=== PATIENT | female | born 1990 | race Caucasian/White ===

== ENCOUNTER → 2023-06-04 09:52 | Outpatient (REF) | payer BC, SELFPAY | LOC: HWRAD 09:52 | PROVIDERS: ATTENDING PHYSICIAN Nurse Practitioner Family; FAMILY PHYSICIAN Family Medicine | DX: R10.9 Unspecified abdominal pain (principal) | CPT/HCPCS: 76775; 76856 ==

== ENCOUNTER → 2023-08-19 09:48 | Outpatient (REF) | payer BC, SELFPAY | LOC: PNTC 09:48 | PROVIDERS: ATTENDING PHYSICIAN Obstetrics & Gynecology | DX: Z36.0 Encounter for antenatal screening for chromosomal anomalies (principal); Z36.82 Encounter for antenatal screening for nuchal translucency | CPT/HCPCS: 76801; 76813 ==

== ENCOUNTER 2024-01-11 16:12 | Observation (INO) | payer BC, SELFPAY ==
[2024-01-11 16:43] VITALS: BP 124/67; BMI 41.6
== END 2024-01-11 18:12 | disposition home or self-care (01) ==
LOC: LDRP 16:12
PROVIDERS: ADMITTING PHYSICIAN Obstetrics & Gynecology; FAMILY PHYSICIAN Family Medicine
DX: O47.03 False labor before 37 completed weeks of gestation, third trimester (principal); R10.9 Unspecified abdominal pain; K90.0 Celiac disease; O99.343 Other mental disorders complicating pregnancy, third trimester; F41.9 Anxiety disorder, unspecified; Z3A.34 34 weeks gestation of pregnancy; O09.523 Supervision of elderly multigravida, third trimester; Z80.7 Family history of other malignant neoplasms of lymphoid, hematopoietic and related tissues; Z82.49 Family history of ischemic heart disease and other diseases of the circulatory system; Z86.16 Personal history of COVID-19; Z91.040 Latex allergy status; Z88.2 Allergy status to sulfonamides; Z91.018 Allergy to other foods
CPT/HCPCS: 59899; G0378

== ENCOUNTER → 2024-01-12 11:24 | Outpatient (REF) | payer BC, SELFPAY | LOC: PNTC 11:24 | PROVIDERS: ATTENDING PHYSICIAN Obstetrics & Gynecology | DX: O99.210 Obesity complicating pregnancy, unspecified trimester (principal); O09.529 Supervision of elderly multigravida, unspecified trimester; O34.219 Maternal care for unspecified type scar from previous cesarean delivery | CPT/HCPCS: 59025; 76815 ==

== ENCOUNTER → 2024-01-19 17:03 | Outpatient (REF) | payer BC, SELFPAY | LOC: PNTC 17:03 | PROVIDERS: ATTENDING PHYSICIAN Obstetrics & Gynecology | DX: O99.210 Obesity complicating pregnancy, unspecified trimester (principal); O34.219 Maternal care for unspecified type scar from previous cesarean delivery | CPT/HCPCS: 59025; 76815 ==

== ENCOUNTER → 2024-01-26 15:59 | Outpatient (REF) | payer BC, SELFPAY | LOC: PNTC 15:59 | PROVIDERS: ATTENDING PHYSICIAN Obstetrics & Gynecology | DX: O99.210 Obesity complicating pregnancy, unspecified trimester (principal); O34.219 Maternal care for unspecified type scar from previous cesarean delivery | CPT/HCPCS: 36415; 59025; 76815 ==

== ENCOUNTER → 2024-02-02 09:28 | Outpatient (REF) | payer BC, SELFPAY | LOC: PNTC 09:28 | PROVIDERS: ATTENDING PHYSICIAN Obstetrics & Gynecology | DX: O99.210 Obesity complicating pregnancy, unspecified trimester (principal); O34.219 Maternal care for unspecified type scar from previous cesarean delivery | CPT/HCPCS: 59025; 76815 ==

== ENCOUNTER → 2024-02-09 09:26 | Outpatient (REF) | payer BC, SELFPAY | LOC: PNTC 09:26 | PROVIDERS: ATTENDING PHYSICIAN Obstetrics & Gynecology | DX: O99.210 Obesity complicating pregnancy, unspecified trimester (principal); O34.219 Maternal care for unspecified type scar from previous cesarean delivery | CPT/HCPCS: 59025; 76815 ==

== ENCOUNTER 2024-02-10 03:40 | Inpatient (IN) | payer BC, SELFPAY ==
[2024-02-10 04:10] VITALS: BMI 41.2
[2024-02-10] MEDS: LR 1000 IV (04:20)
[2024-02-10 04:46] LABS: Hematocrit 35.3 % (37.0-47.0); Hemoglobin 11.6 g/dL (12.0-16.0); Mean Corp Hgb Conc. 32.9 g/dL (33.0-37.0); Mean Corpuscular Hgb 29.1 pg (27.0-31.0); Mean Corpuscular Volume 88.5 fL (81.0-99.0); Mean Platelet Volume 8.8 fL (7.4-10.4); Platelet Count 346 10^3/uL (130-400); Red Blood Cell Count 3.99 10^6/uL (4.20-5.40); Red Cell Dist. Width 14.4 % (11.5-14.5); White Blood Cell Count 9.3 10^3/uL (4.8-10.8)
[2024-02-10] MEDS: TYLENOL 1000 MG PO (05:04)
[2024-02-10] MEDS: BICITRA 30 ML PO (05:04)
[2024-02-10] MEDS: ANCEF 10 IV (05:45)
[2024-02-10 07:26] VITALS: BP 121/63; BMI 41.2
[2024-02-10] MEDS: TORADOL 15 MG IV ×3 (07:38→20:07)
[2024-02-10] MEDS: MORPHINE SULFATE 4 MG IV (08:08)
[2024-02-10] MEDS: PERCOCET 5/325 1 TABLET PO ×2 (12:51→23:44)
[2024-02-10] MEDS: AUGMENTIN 875 MG/125 MG PO ×2 (14:11→20:30)
[2024-02-10] MEDS: AUGMENTIN 875 MG/125 MG 1 TABLET PO (15:02)
[2024-02-10] MEDS: DIFLUCAN 150 MG PO (16:52)
--- NOTE | 2024-02-10 16:52 | W.PN.ANS.POP ---
Anesthesia Post Operative
- Anesthesia Post Op Note
Vital Signs Stable-See Nursing Note: Yes
Airway Patent: Yes
Adequate Pain Control: Yes
Change in Mental Status: No
Current Postoperative Nausea & Vomiting: No
Anesthesia Complications: No
General Anesthetic Recall: No
Unplanned Admission: No
Post Op Hydration Adequate: Yes
[2024-02-10] MEDS: PRENATAL PLUS PO (18:16)
[2024-02-11] MEDS: TORADOL 15 MG IV ×2 (01:57→08:31)
[2024-02-11] MEDS: AUGMENTIN 875 MG/125 MG 1 TABLET PO ×2 (05:19→16:12)
[2024-02-11 05:45] LABS: Hematocrit 34.6 % (37.0-47.0); Hemoglobin 11.1 g/dL (12.0-16.0); Mean Corp Hgb Conc. 32.1 g/dL (33.0-37.0); Mean Corpuscular Hgb 28.9 pg (27.0-31.0); Mean Corpuscular Volume 90.1 fL (81.0-99.0); Mean Platelet Volume 8.7 fL (7.4-10.4); Platelet Count 294 10^3/uL (130-400); Red Blood Cell Count 3.84 10^6/uL (4.20-5.40); Red Cell Dist. Width 14.4 % (11.5-14.5); White Blood Cell Count 11.9 10^3/uL (4.8-10.8)
[2024-02-11] MEDS: PRENATAL PLUS 1 TABLET PO (08:31)
[2024-02-11] MEDS: SENOKOT-S 1 TABLET PO (08:31)
[2024-02-11] MEDS: MOTRIN 600 MG PO ×2 (14:53→21:15)
[2024-02-11] MEDS: PERCOCET 5/325 1 TABLET PO ×2 (14:54→21:14)
[2024-02-11] MEDS: ROBITUSSIN 100 MG PO (17:17)
[2024-02-12] MEDS: MOTRIN 600 MG PO ×2 (03:25→09:42)
[2024-02-12] MEDS: PERCOCET 5/325 1 TABLET PO ×2 (03:25→09:43)
[2024-02-12] MEDS: AUGMENTIN 875 MG/125 MG 1 TABLET PO (03:25)
[2024-02-12] MEDS: MYLICON 80 MG PO (09:42)
[2024-02-12] MEDS: PRENATAL PLUS 1 TABLET PO (09:43)
[2024-02-12] MEDS: SENOKOT-S 1 TABLET PO (09:43)
[2024-02-12 11:18] LABS: Syphilis/T. pallidum Ab Reflex Negative (Negative)
--- NOTE | 2024-02-12 11:41 | W.DS.TRANS ---
DC Summary - Drain Cleaner
-
Discharge Instructions:
Discharge Diagnosis/Procedures rcs
Diet No restrictions
Instructions:
Stand-Alone Forms:
Changes to Home Medications: No
Discharge Medications:
DC Medications w/original date entered in [facility]
Vitamin 1 tab PO DAILY Supplement 01/11/24
Vitamin D3 1 tab PO DAILY Supplement 01/11/24
[id number]-fish oil-flax-E 1 tab PO DAILY Supplement 01/11/24
amoxicillin-pot clavulanate 875 mg PO 2XD sinus infection 02/10/24
ibuprofen 600 mg tablet 600 mg PO Q6HPRN PRN cramps #90 tabs 02/12/24
oxycodone-acetaminophen 5 mg-325 mg tablet 1 tab PO Q4HPRN PRN moderate pain #8 tabs 02/12/24
Home Medication Changes
Pending Results: No
Total time spent discharging patient (in min): 20
== END 2024-02-12 15:10 | disposition home or self-care (01) | DRG 787 ==
LOC: LDRP 03:40
PROVIDERS: Obstetrics & Gynecology; ADMITTING PHYSICIAN Obstetrics & Gynecology; ATTENDING PHYSICIAN Obstetrics & Gynecology
PROC: 0HB7XZZ Excision of Abdomen Skin, External Approach (ICD-10-PCS; 2024-02-10)
PROC: 10D00Z1 Extraction of Products of Conception, Low, Open Approach (ICD-10-PCS; 2024-02-10)
PROC: 6A550ZT Pheresis of Cord Blood Stem Cells, Single (ICD-10-PCS; 2024-02-10)
DX: O42.02 Full-term premature rupture of membranes, onset of labor within 24 hours of rupture (principal); O99.354 Diseases of the nervous system complicating childbirth; Z3A.38 38 weeks gestation of pregnancy; Z37.0 Single live birth; O34.211 Maternal care for low transverse scar from previous cesarean delivery; J01.90 Acute sinusitis, unspecified; G43.909 Migraine, unspecified, not intractable, without status migrainosus; L91.0 Hypertrophic scar; O99.72 Diseases of the skin and subcutaneous tissue complicating childbirth; Z88.2 Allergy status to sulfonamides; Z91.040 Latex allergy status; Z86.16 Personal history of COVID-19; Z80.7 Family history of other malignant neoplasms of lymphoid, hematopoietic and related tissues; Z82.49 Family history of ischemic heart disease and other diseases of the circulatory system; Z28.310 Unvaccinated for COVID-19
CPT/HCPCS: 85027; 86780; 86850; 86900; 86901

== ENCOUNTER → 2024-04-14 13:03 | Outpatient (REF) | payer OTHER, SELFPAY | LOC: HWRAD 13:03 | PROVIDERS: ATTENDING PHYSICIAN Otolaryngology Facial Plastic Surgery; FAMILY PHYSICIAN Family Medicine | DX: J34.2 Deviated nasal septum (principal); J32.2 Chronic ethmoidal sinusitis; J32.0 Chronic maxillary sinusitis | CPT/HCPCS: 70486 ==